=== PATIENT | male | born 1965 | race Caucasian/White ===

== ENCOUNTER → 2023-02-11 07:49 | Outpatient (CLI) | payer OTHER, SELFPAY ==
--- NOTE | 2023-02-11 | DI.ECHO.S_ITS ---
[facility]---------+ [facility] +---------+ : : [address] : : : : [id number] : : : : Phone: [phone]+ Echocardiogram Report + + :Name: NADJA POP Study Date: 02/11/2023 Height: 74 in : :[facility] ReadingLocation: Weight: 200 lb : : Gender: Male BSA: 2.2 m2 : :: 1965 Age: 57 yrs BP: 149/102 mmHg: :Reason For Study: SINUS BRADYCARDIA, LEFT BUNDLE BRANCH BLOCK : :Ordering Physician: SHANDA, : :CAILIN Performed By: Hiwot Dale : :Referring: CAILIN LAND : + + Interpretation Summary The left ventricle is normal in size. Left ventricular ejection fraction is estimated to be 45 +/- 5%. There is a hypokinesis of mid to distal inferolateral wall as well as mid to distal anterolateral wall. The right ventricle is normal in size and function. No significant valvular pathology seen. The IVC is of normal diameter and collapses greater than 50% with a sniff. This suggests a low right atrial pressure of 3 mm Hg. Procedure: A two-dimensional transthoracic echocardiogram with color flow and Doppler was performed. The study quality was technically adequate. There is no prior echocardiogram noted for this patient. The patient was in sinus rhythm with heart rates between 57-75 bpm during the exam. The patient had a bundle branch block rhythm during the exam. Left Ventricle: Left ventricular wall thickness is mildly increased. The left ventricle is normal in size. Proximal septal thickening is noted. There is no echo evidence for significant left ventricular outflow tract obstruction. There is no thrombus. Left ventricular ejection fraction is estimated to be 45 +/- 5%. Septal motion is consistent with conduction abnormality. There is a hypokinesis of mid to distal inferolateral wall as well as mid to distal anterolateral wall. MV E/A: 0.98 Med Peak E' Toby: 3.1 cm/sec E/E' med: 17.9. Right Ventricle: The right ventricle is normal in size and function. Atria: The left atrial size is normal. Right atrial size is normal. There is no Doppler evidence for an interatrial shunt. Mitral Valve: The mitral valve is normal in structure and function. There is trace mitral regurgitation. Aortic Valve: The aortic valve is trileaflet. The aortic valve opens well. There is no aortic valve stenosis. No aortic regurgitation is present. Tricuspid Valve: The tricuspid valve is normal in structure and function. There is trace tricuspid regurgitation. Pulmonary artery pressures cannot be estimated because of the lack of a measurable TR jet velocity. Pulmonic Valve: The pulmonic valve leaflets are thin and pliable; valve motion is normal. There is no pulmonic valvular regurgitation. Great Vessels: The aortic root is normal size. The dimensions of the ascending aorta are normal. The IVC is of normal diameter and collapses greater than 50% with a sniff. This suggests a low right atrial pressure of 3 mm Hg. Pericardium/ Pleura There is no pericardial effusion. There is an anterior echo-free space consistent with a fat pad. There is no pleural effusion. MMode/2D Measurements & Calculations LVIDd: 4.5 cm LVOT diam: 2.0 cm LVIDs: 3.0 cm Ao root diam: 3.4 cm FS: 33.3 % asc Aorta Diam: 3.4 cm IVSd: 1.1 cm Ao Arch Diam (Prox Trans): 2.9 cm LVPWd: 0.95 cm LV chadwick. diameter/BSA (cm/m^2): 2.1 LV sys. diameter/BSA (cm/m^2): 1.4 LA A2 area: 26.1 cm2 RA long axis: 5.9 cm LA A4 area: 14.7 cm2 RA area: 16.0 cm2 LA length (vol): 4.8 cm RA vol: 36.9 ml LA vol: 68.2 ml RA : 17.0 ml/m2 LA vol index: 31.4 ml/m2 IVC diam: 1.3 cm RVD1 (basal): 3.5 cm RVD2 (mid): 2.5 cm TAPSE: 2.5 cm Doppler Measurements & Calculations Ao V2 max: 132.2 cm/sec LVOT Max Toby: 100.0 cm/sec Ao V2 mean: 91.7 cm/sec LV V1 max P.0 mmHg Ao max P.0 mmHg LV V1 VTI: 21.6 cm Ao mean P.7 mmHg ARACELIS(I,D): 2.6 cm2 Ao V2 VTI: 26.3 cm ARACELIS(V,D): 2.4 cm2 sev ratio: 0.82 ARACELIS indexed to BSA (cm^2/m^2): 1.2 MV E max toby: 55.1 cm/sec PA V2 max: 99.3 cm/sec MV A max toby: 56.4 cm/sec PA V2 mean: 67.6 cm/sec MV E/A: 0.98 PA mean P.0 mmHg Med Peak E' Toby: 3.1 cm/sec PA pr(Accel): 41.3 mmHg E/E' med: 17.9 Lat Peak E' Toby: 6.6 cm/sec E/E' lat: 8.3 E/e' average: 13.1 MV dec time: 0.19 sec SV(LVOT): 68.6 ml Reading Physician:04:39 PM
== END ==
PROVIDERS: Visit Provider Physician Assistant
DX: R00.1 Bradycardia, unspecified (principal)
CPT/HCPCS: 93306

== ENCOUNTER → 2023-04-07 10:33 | Outpatient (CLI) | payer OTHER, SELFPAY ==
--- NOTE | 2023-04-07 | DI.RAD.S_ITS ---
Bone Density Report Name: NADJA POP Age: 57 Sex: Male Ethnicity: White Date of : 1965 Indication: Referring Provider: JESUSITA VAZQUEZ M.D. Study: Bone densitometry was performed. Exam Date: April 07, 2023 Accession number: [id number] Bone Density: Region BMD T-score Z-score Classification AP Spine(L1-L4) 0.820 -2.1 -1.9 Osteopenia Femoral Neck (Left) 0.648 -1.8 -1.1 Osteopenia Total Hip (Left) 0.786 -1.3 -1.2 Osteopenia Femoral Neck (Right) 0.666 -1.6 -1.0 Osteopenia Total Hip (Right) 0.855 -0.7 -0.7 Normal Total Hip Mean 0.820 -1.0 -1.0 Normal World Health Organization criteria for BMD impression classify patients as: Normal (T-score at or above -1.0), Osteopenia (T-score between -1.0 and -2.5), or Osteoporosis (T-score at or below -2.5). 10-year Fracture Risk(1): Major Osteoporotic Fracture 7.2% Hip Fracture 1.2% Reported Risk Factors: [place] (), Neck BMD=0.648, BMI=26.9 (1) FRAX(R) Version 3.08. Fracture probability calculated for an untreated patient. Fracture probability may be lower if the patient has received treatment. Impression: The patient has low bone mass, based on the Total Spine T-score. The patient has an estimated ten-year risk of hip fracture of 1.2% and an estimated ten-year risk of major fracture of 7.2%, based on the WHO FRAX algorithm. Discussion: BONE DENSITY IS LOW AT ONE OR MORE SKELETAL SITES. This patient's lowest T-score is low at one or more skeletal sites. It meets the World Health Organization's (WHO) criteria for low bone mass (T-score between -1.0 and -2.5). The patient's 10-year risk of fracture as calculated by FRAX is less than the threshold where pharmacological therapy is recommended by the National Osteoporosis Foundation (NOF). However, all treatment decisions require clinical judgment and consideration of individual patient factors, including patient preferences, comorbidities, previous drug use, risk factors not captured in the FRAX model (e.g., frailty, falls, vitamin D deficiency, increased bone turnover, interval significant decline in bone density) and possible under or overestimation of fracture risk by FRAX. The patient should follow a healthful lifestyle (good nutrition with adequate calcium and vitamin D, and appropriate weight-bearing exercise). Follow-Up: Consider repeating this study in 2 to 3 years to reassess this patient's status, or sooner if there is some new clinical indication. Reported by: LAM JUAREZ M.D. on 04/07/2023 10:53:00 AM.
== END ==
PROVIDERS: Referring Provider Internal Medicine; Visit Provider Internal Medicine
DX: E21.0 Primary hyperparathyroidism (principal); M85.88 Other specified disorders of bone density and structure, other site; E06.3 Autoimmune thyroiditis
CPT/HCPCS: 77080

== ENCOUNTER → 2023-04-21 08:07 | Outpatient (CLI) | payer OTHER, SELFPAY ==
--- NOTE | 2023-04-21 23:15 | DI.NM.S_ITS ---
DATE OF SERVICE: 04/21/2023 PROCEDURE PERFORMED: Pharmacologic vasodilator stress and rest myocardial perfusion imaging with gating to assess ejection fraction and regional wall motion. ORDERING PROVIDER: Dr. Cb Albright. INDICATIONS: The patient is a 57-year-old male with recently discovered LBBB. CARDIAC STRESS: Per protocol, 0.4 mg of regadenoson was infused with a slight increase in the heart rate but no significant blood pressure change. He had mild dyspnea but no chest discomfort. The resting ECG showed sinus rhythm with an LBBB that precluded ST-segment analysis. There were no obvious ST-segment shifts or arrhythmias with stress. Per protocol, 25.3 millicuries of technetium-99m Myoview was injected and he was imaged 10 minutes later using a gated SPECT acquisition protocol. Earlier in the day while at rest, he had been injected with 12.8 millicuries of technetium-99m Myoview and was imaged 15 minutes later, again using a gated SPECT acquisition protocol. FINDINGS: 1. Raw data. There is fair myocardial tracer uptake. The lung/heart ratio is normal at 0.36 with a normal TID ratio of 0.95. 2. Quantitative gated SPECT: Post-stress ejection fraction is estimated at 70% with a mild dyssynchronous contraction pattern and mild apical hypokinesis, likely due to the conduction abnormality. There are no other focal wall motion abnormalities. The resting ejection fraction is 60% with a resting end-diastolic volume at the upper limits of normal at 128 mL. 3. Myocardial perfusion imaging: Post-stress supine images show a fairly normal myocardial perfusion pattern although with a mild defect in the inferior wall that resolves on prone imaging, consistent with diaphragmatic attenuation artifact. In addition, there is a mild defect within the mid to distal interventricular septum, a finding often seen with LBBB, which improves, although does not completely resolve on the prone images. The resting images show an essentially identical perfusion pattern without any clear areas of improvement. IMPRESSION: 1. Probable normal myocardial perfusion study. 2. Mild fixed inferior defect that resolves on prone imaging, most consistent with diaphragmatic attenuation artifact. In addition, there is a predominantly fixed septal defect that persists slightly on the prone images in a pattern that is consistent with a left bundle-branch block artifact. There is no compelling evidence for any significant myocardial ischemia or previous myocardial infarction. 3. Normal left ventricular systolic function although with a slight dyssynchronous contraction pattern and apical hypokinesis, likely due to the conduction abnormality. Left ventricular volumes are at the upper limits of normal. 4. No angina or arrhythmias with pharmacologic vasodilator stress. The presence of a left bundle-branch block precludes ST-segment analysis. Reji Eran - KAVITHA/oumar/SHEY doc#: [id number]/job#: [id number] dd: 04/21/2023 16:13:00 dt: 04/21/2023 23:00:00 DICTATING MD/COPIES TO: Mandeep Nava MD; Dr. Cb Albright COPIES MNE: BRUCE; ; Dr. Cb Albright
== END ==
PROVIDERS: Referring Provider Internal Medicine; Visit Provider Internal Medicine
DX: R94.31 Abnormal electrocardiogram [ECG] [EKG] (principal); I44.7 Left bundle-branch block, unspecified
CPT/HCPCS: 78452; 93017; A9502; J2785